=== PATIENT | female | born 1945 | race Caucasian/White ===

== ENCOUNTER 2016-12-03 23:53 | Emergency (ER) | payer MEDICARE ==
[~2016-12-03] VITALS: Ht 139.7 cm; Wt 71.0 kg
[2016-12-04] MEDS ORDERED: LEVO50TA11 PO (00:25)
[2016-12-04] MEDS ORDERED: LOSA50TA37 PO (00:25)
[2016-12-04] MEDS ORDERED: ALEN70TA14 PO (00:25)
[2016-12-04 00:32] VITALS: BP 141/71
[2016-12-04] MEDS ORDERED: ACETAMINOPHEN 325 MG TABLET PO ONE (00:45)
[2016-12-04] MEDS ORDERED: ACETIC ACID 2% 15 ML OTIC SOLUTION AD ONE (00:45)
== END 2016-12-04 02:23 | disposition home or self-care (01) ==
LOC: EMS 23:55
DX: H60.91 Unspecified otitis externa, right ear (principal); E03.9 Hypothyroidism, unspecified; I10 Essential (primary) hypertension
CPT/HCPCS: 99283